=== PATIENT | male | born 1990 | race Caucasian/White ===

== ENCOUNTER 2023-08-03 10:17 | Emergency (ER) | payer OTHER ==
[2023-08-03] MEDS: Lidocaine 2% 5 ML SDV INJECT ONE (10:39)
[2023-08-03] MEDS: Bacitracin/Neomycin/Polymyxin B Oint 0.9 GM U/D Packet TOP ONE (10:51)
[2023-08-03] MEDS: Diphtheria,Pertussis(Acell),Tetanus Vaccine 0.5 ML Syringe IM ONE (10:54)
== END 2023-08-03 11:05 | disposition home or self-care (01) ==
LOC: KA.ED 10:17
DX: S61.215A Laceration without foreign body of left ring finger without damage to nail, initial encounter (principal); B96.3 Hemophilus influenzae [H. influenzae] as the cause of diseases classified elsewhere; Z23 Encounter for immunization; W27.8XXA Contact with other nonpowered hand tool, initial encounter
CPT/HCPCS: 12001; 73140-F3; 90471; 90715; 99283; 99283-25; J3490